=== PATIENT | male | born 1975 | race Caucasian/White ===

== ENCOUNTER 2018-06-21 17:01 | Emergency (ER) | payer MEDICARE ==
[~2018-06-21] VITALS: Ht 188 cm; Wt 127.0 kg
[2018-06-21] MEDS ORDERED: ATOR20 PO (18:31)
[2018-06-21] MEDS ORDERED: GABA300 PO (18:31)
[2018-06-21 19:26] LABS: BASOPHILS ABSOLUTE AUTO 0.05 K/mm3 (0.00-0.23); BASOPHILS PERCENT AUTO 1 % (0-2); EOSINOPHILS ABSOLUTE AUTO 0.15 K/mm3 (0.00-0.68); EOSINOPHILS PERCENT AUTO 2 % (0-6); Hematocrit 45.2 % (37.0-53.0); Hemoglobin 15.5 g/dL (13.5-17.5); IMMATURE GRAN ABSOLUTE AUTO 0.01 K/mm3 (0.00-0.10); IMMATURE GRAN PERCENT AUTO 0 % (0-1); LYMPHOCYTES ABSOLUTE AUTO 2.15 K/mm3 (0.84-5.20); LYMPHOCYTES PERCENT AUTO 33 % (21-46); MONOCYTES ABSOLUTE AUTO 0.56 K/mm3 (0.16-1.47); MONOCYTES PERCENT AUTO 9 % (4-13); Mean Corpuscular HGB 32.9 pg (26.0-34.0); Mean Corpuscular HGB Conc 34.3 g/dL (31.5-36.5); Mean Corpuscular Volume 96 fL (80-100); Mean Platelet Volume 10.6 fL (9.1-12.4); NEUTROPHILS ABSOLUTE AUTO 3.57 K/mm3 (1.96-9.15); NEUTROPHILS PERCENT AUTO 55 % (41-73); Platelet Count 202 K/mm3 (150-400); RDW Standard Deviation 41.4 fL (35.1-46.3); Red Blood Cell Count 4.71 M/mm3 (4.30-5.90); White Blood Cell Count 6.49 K/mm3 (4.00-11.30)
[2018-06-21 19:42] LABS: International Normalized Ratio 0.97
[2018-06-21 19:45] LABS: Alanine Aminotransfer (ALT/SGP 106 U/L (12-78); Albumin, Blood 3.9 g/dL (3.4-5.0); Albumin/Globulin Ratio 1.3 (0.8-1.8); Alk Phos 92 U/L (50-136); Anion Gap 6 mmol/L (6-16); Aspartate Aminotrans (AST/SGOT 54 U/L (12-37); Bilirubin, Total 0.4 mg/dL (0.1-1.0); Blood Urea Nitrogen 13 mg/dL (8-24); Bun/Creatinine Ratio 13.2 (12.0-20.0); CO2, Blood 30 mmol/L (21-32); Calcium, Blood 9.1 mg/dL (8.5-10.1); Chloride, Blood 103 mmol/L (98-108); Creatinine, Blood 0.99 mg/dL (0.60-1.20); Glomerular Filtration Rate >60 (60-); Glucose, Blood 122 mg/dL (70-99); Potassium, Blood 3.8 mmol/L (3.5-5.5); Sodium, Blood 139 mmol/L (136-145); Total Protein, Blood 6.9 g/dL (6.4-8.2)
[2018-06-21] MEDS ORDERED: CEPH500 PO (20:13)
== END 2018-06-21 20:27 | disposition home or self-care (01) ==
LOC: ER 17:01
PROVIDERS: Emergency Medicine
DX: L03.115 Cellulitis of right lower limb (principal); F17.200 Nicotine dependence, unspecified, uncomplicated; Z88.8 Allergy status to other drugs, medicaments and biological substances; Z88.5 Allergy status to narcotic agent; Z88.6 Allergy status to analgesic agent; Z79.899 Other long term (current) drug therapy
CPT/HCPCS: 80053; 85025; 85610; 85730; 93971; 99284-25

== ENCOUNTER → 2018-09-21 | Outpatient (CLI) | payer OTHER ==
[~2018-09-21] MED LIST: ATOR20 PO; Bactrim Ds Tab1 EACH PO; CEPH500 PO; GABA300 PO
[2018-09-21 15:06] LABS: BASOPHILS ABSOLUTE AUTO 0.06 K/mm3 (0.00-0.23); BASOPHILS PERCENT AUTO 1 % (0-2); EOSINOPHILS ABSOLUTE AUTO 0.16 K/mm3 (0.00-0.68); EOSINOPHILS PERCENT AUTO 2 % (0-6); Hematocrit 46.9 % (37.0-53.0); Hemoglobin 16.5 g/dL (13.5-17.5); IMMATURE GRAN ABSOLUTE AUTO 0.02 K/mm3 (0.00-0.10); IMMATURE GRAN PERCENT AUTO 0 % (0-1); LYMPHOCYTES ABSOLUTE AUTO 2.08 K/mm3 (0.84-5.20); LYMPHOCYTES PERCENT AUTO 26 % (21-46); MONOCYTES ABSOLUTE AUTO 0.45 K/mm3 (0.16-1.47); MONOCYTES PERCENT AUTO 6 % (4-13); Mean Corpuscular HGB 33.2 pg (26.0-34.0); Mean Corpuscular HGB Conc 35.2 g/dL (31.5-36.5); Mean Corpuscular Volume 94 fL (80-100); Mean Platelet Volume 10.2 fL (9.1-12.4); NEUTROPHILS PERCENT AUTO 65 % (41-73); Platelet Count 222 K/mm3 (150-400); RDW Standard Deviation 41.3 fL (35.1-46.3); Red Blood Cell Count 4.97 M/mm3 (4.30-5.90); White Blood Cell Count 7.87 K/mm3 (4.00-11.30)
[2018-09-21 15:20] LABS: Alanine Aminotransfer (ALT/SGP 51 U/L (12-78); Albumin, Blood 3.8 g/dL (3.4-5.0); Albumin/Globulin Ratio 1.1 (0.8-1.8); Alk Phos 86 U/L (40-126); Anion Gap 10 mmol/L (6-16); Aspartate Aminotrans (AST/SGOT 18 U/L (12-37); Bilirubin, Total 0.4 mg/dL (0.1-1.0); Blood Urea Nitrogen 11 mg/dL (8-24); Bun/Creatinine Ratio 11.8 (12.0-20.0); CO2, Blood 28 mmol/L (21-32); CPK Creatine Kinase 223 U/L (39-308); Calcium, Blood 9.2 mg/dL (8.5-10.1); Chloride, Blood 103 mmol/L (98-108); Creatinine, Blood 0.93 mg/dL (0.60-1.20); Globulin, Blood 3.5 g/dL (2.2-4.0); Glomerular Filtration Rate >60 (60-); Glucose, Blood 110 mg/dL (70-99); Potassium, Blood 4.3 mmol/L (3.5-5.5); Sodium, Blood 141 mmol/L (136-145); Total Protein, Blood 7.3 g/dL (6.4-8.2)
[2018-09-21 15:21] LABS: Troponin I <0.017 ng/mL (0.000-0.040)
== END ==
LOC: LAB SHORT 15:02 → LAB EV 15:02
PROVIDERS: General Practice
DX: R07.9 Chest pain, unspecified (principal)
CPT/HCPCS: 80053; 82550; 84484; 85025; 85379

== ENCOUNTER 2018-12-06 02:36 | Emergency (ER) | payer MEDICARE, OTHER ==
[~2018-12-06] VITALS: Ht 188 cm; Wt 136.1 kg
[2018-12-06] MEDS ORDERED: LISINOPRIL (03:25)
== END 2018-12-06 06:20 | disposition home or self-care (01) ==
LOC: ER 02:36
DX: N48.30 Priapism, unspecified (principal); Z88.1 Allergy status to other antibiotic agents; Z88.5 Allergy status to narcotic agent; Z88.6 Allergy status to analgesic agent; Z88.8 Allergy status to other drugs, medicaments and biological substances; Z79.899 Other long term (current) drug therapy; F17.200 Nicotine dependence, unspecified, uncomplicated
CPT/HCPCS: 36415; 96374; 99283-25; J1170; J2370; J2405; J3105

== ENCOUNTER 2018-12-06 10:37 | Emergency (ER) | payer MEDICARE, OTHER ==
[~2018-12-06] VITALS: Ht 188 cm; Wt 136.1 kg
[~2018-12-06 10:37] MED LIST changes: +LISINOPRIL
== END 2018-12-06 13:16 | disposition home or self-care (01) ==
LOC: ER 10:37
DX: N48.30 Priapism, unspecified (principal); Z86.73 Personal history of transient ischemic attack (TIA), and cerebral infarction without residual deficits; F17.200 Nicotine dependence, unspecified, uncomplicated
CPT/HCPCS: 99283; J2370

== ENCOUNTER 2019-05-28 19:50 | Emergency (ER) | payer OTHER, MEDICARE ==
[~2019-05-28] VITALS: Ht 188 cm; Wt 145.2 kg
== END 2019-05-28 20:40 | disposition home or self-care (01) ==
LOC: ER 19:50
DX: M25.532 Pain in left wrist (principal); I25.2 Old myocardial infarction; F17.200 Nicotine dependence, unspecified, uncomplicated; Z86.73 Personal history of transient ischemic attack (TIA), and cerebral infarction without residual deficits; Z85.51 Personal history of malignant neoplasm of bladder; Z88.1 Allergy status to other antibiotic agents; Z88.8 Allergy status to other drugs, medicaments and biological substances; Z88.5 Allergy status to narcotic agent; Z79.899 Other long term (current) drug therapy
CPT/HCPCS: 29125; 73110; 99283-25

== ENCOUNTER 2021-01-09 11:07 | Emergency (ER) | payer OTHER ==
[~2021-01-09] VITALS: Ht 188 cm; Wt 140.2 kg
[2021-01-09 11:41] LABS: BASOPHILS ABSOLUTE AUTO 0.06 K/mm3 (0.00-0.23); BASOPHILS PERCENT AUTO 1 % (0-2); EOSINOPHILS ABSOLUTE AUTO 0.09 K/mm3 (0.00-0.68); EOSINOPHILS PERCENT AUTO 1 % (0-6); Hematocrit 48.7 % (37.0-53.0); Hemoglobin 17.2 g/dL (13.5-17.5); IMMATURE GRAN ABSOLUTE AUTO 0.01 K/mm3 (0.00-0.10); IMMATURE GRAN PERCENT AUTO 0 % (0-1); LYMPHOCYTES ABSOLUTE AUTO 1.79 K/mm3 (0.84-5.20); LYMPHOCYTES PERCENT AUTO 24 % (21-46); MONOCYTES ABSOLUTE AUTO 0.46 K/mm3 (0.16-1.47); MONOCYTES PERCENT AUTO 6 % (4-13); Mean Corpuscular HGB 33.5 pg (26.0-34.0); Mean Corpuscular HGB Conc 35.3 g/dL (31.5-36.5); Mean Corpuscular Volume 95 fL (80-100); Mean Platelet Volume 10.3 fL (9.1-12.4); NEUTROPHILS PERCENT AUTO 68 % (41-73); Platelet Count 242 K/mm3 (150-400); RDW Coefficient Variation 11.8 % (11.7-14.2); RDW Standard Deviation 41.2 fL (35.1-46.3); Red Blood Cell Count 5.14 M/mm3 (4.30-5.90); White Blood Cell Count 7.51 K/mm3 (4.00-11.30)
[2021-01-09 11:59] LABS: Alanine Aminotransfer (ALT/SGP 68 U/L (12-78); Albumin, Blood 3.9 g/dL (3.4-5.0); Alk Phos 106 U/L (50-136); Anion Gap 4 mmol/L (6-16); Aspartate Aminotrans (AST/SGOT 30 U/L (12-37); Bilirubin, Total 0.4 mg/dL (0.1-1.0); Blood Urea Nitrogen 17 mg/dL (8-24); CO2, Blood 30 mmol/L (21-32); Calcium, Blood 9.5 mg/dL (8.5-10.1); Chloride, Blood 101 mmol/L (98-108); Creatinine, Blood 0.85 mg/dL (0.60-1.20); Globulin, Blood 3.8 g/dL (2.2-4.0); Glomerular Filtration Rate >60 (60-); Glucose, Blood 271 mg/dL (70-99); Potassium, Blood 4.1 mmol/L (3.5-5.5); Sodium, Blood 135 mmol/L (136-145); Total Protein, Blood 7.7 g/dL (6.4-8.2); Troponin I <0.015 ng/mL (0.000-0.040)
== END 2021-01-09 14:56 | disposition home or self-care (01) ==
LOC: ER 11:07
PROVIDERS: Emergency Medicine
DX: R07.9 Chest pain, unspecified (principal); E11.65 Type 2 diabetes mellitus with hyperglycemia; I25.2 Old myocardial infarction; F17.200 Nicotine dependence, unspecified, uncomplicated; Z88.5 Allergy status to narcotic agent; Z88.4 Allergy status to anesthetic agent; Z88.8 Allergy status to other drugs, medicaments and biological substances; Z79.899 Other long term (current) drug therapy; Z86.73 Personal history of transient ischemic attack (TIA), and cerebral infarction without residual deficits
CPT/HCPCS: 36415; 71045; 80053; 83690; 84484; 85025; 93005; 93010; 99284-25

== ENCOUNTER → 2021-02-03 | Outpatient (CLI) | payer OTHER | END | disposition home or self-care (01) | LOC: LAB SHORT 12:12 | DX: L72.3 Sebaceous cyst (principal) | CPT/HCPCS: 87070; 87075; 87205 ==

== ENCOUNTER 2021-05-10 11:44 | Emergency (ER) | payer OTHER ==
[~2021-05-10] VITALS: Ht 188 cm; Wt 131.5 kg
== END 2021-05-10 13:16 | disposition home or self-care (01) ==
LOC: ER 11:44
DX: S61.012A Laceration without foreign body of left thumb without damage to nail, initial encounter (principal); G62.9 Polyneuropathy, unspecified; I25.2 Old myocardial infarction; G47.30 Sleep apnea, unspecified; Z86.73 Personal history of transient ischemic attack (TIA), and cerebral infarction without residual deficits; F17.210 Nicotine dependence, cigarettes, uncomplicated; Z23 Encounter for immunization; Z88.1 Allergy status to other antibiotic agents; Z88.8 Allergy status to other drugs, medicaments and biological substances; Z88.5 Allergy status to narcotic agent; Z79.899 Other long term (current) drug therapy; W26.8XXA Contact with other sharp object(s), not elsewhere classified, initial encounter
CPT/HCPCS: 12002; 90471; 90714; 99282

== ENCOUNTER → 2021-07-18 | Outpatient (CLI) | payer OTHER | END | disposition home or self-care (01) | LOC: LAB 12:31 → LAB SHORT 12:31 | DX: L60.2 Onychogryphosis (principal); B35.1 Tinea unguium | CPT/HCPCS: 88305; 88312 ==

== ENCOUNTER → 2021-12-19 | Outpatient (CLI) | payer OTHER ==
[2021-12-19 12:41] LABS: BASOPHILS ABSOLUTE AUTO 0.05 K/mm3 (0.00-0.23); BASOPHILS PERCENT AUTO 1 % (0-2); EOSINOPHILS ABSOLUTE AUTO 0.13 K/mm3 (0.00-0.68); EOSINOPHILS PERCENT AUTO 2 % (0-6); Hematocrit 46.2 % (37.0-53.0); Hemoglobin 16.7 g/dL (13.5-17.5); IMMATURE GRAN ABSOLUTE AUTO 0.03 K/mm3 (0.00-0.10); IMMATURE GRAN PERCENT AUTO 0 % (0-1); LYMPHOCYTES ABSOLUTE AUTO 1.46 K/mm3 (0.84-5.20); LYMPHOCYTES PERCENT AUTO 20 % (21-46); MONOCYTES ABSOLUTE AUTO 0.47 K/mm3 (0.16-1.47); MONOCYTES PERCENT AUTO 6 % (4-13); Mean Corpuscular HGB 33.4 pg (26.0-34.0); Mean Corpuscular HGB Conc 36.1 g/dL (31.5-36.5); Mean Corpuscular Volume 92 fL (80-100); Mean Platelet Volume 9.7 fL (9.1-12.4); NEUTROPHILS ABSOLUTE AUTO 5.36 K/mm3 (1.96-9.15); NEUTROPHILS PERCENT AUTO 71 % (41-73); Platelet Count 240 K/mm3 (150-400); RDW Coefficient Variation 11.8 % (11.7-14.2); RDW Standard Deviation 39.9 fL (35.1-46.3)
[2021-12-19 12:51] LABS: Anion Gap 10 mmol/L (6-16); Blood Urea Nitrogen 14 mg/dL (8-24); Bun/Creatinine Ratio 13.2 (12.0-20.0); CO2, Blood 30 mmol/L (21-32); Calcium, Blood 9.5 mg/dL (8.5-10.1); Chloride, Blood 100 mmol/L (98-108); Creatinine, Blood 1.06 mg/dL (0.60-1.20); Glomerular Filtration Rate >60 (60-); Glucose, Blood 290 mg/dL (70-99); Potassium, Blood 4.4 mmol/L (3.5-5.5); Sodium, Blood 140 mmol/L (136-145)
== END | disposition home or self-care (01) ==
LOC: LAB 12:38 → LAB SHORT 12:38
PROVIDERS: Physician Assistant Medical
DX: R07.9 Chest pain, unspecified (principal)
CPT/HCPCS: 80048; 84484; 85025

== ENCOUNTER 2022-02-16 12:04 | Emergency (ER) | payer OTHER ==
[~2022-02-16] VITALS: Ht 188 cm; Wt 131.5 kg
[2022-02-16 12:41] LABS: BASOPHILS ABSOLUTE AUTO 0.05 K/mm3 (0.00-0.23); BASOPHILS PERCENT AUTO 1 % (0-2); EOSINOPHILS ABSOLUTE AUTO 0.12 K/mm3 (0.00-0.68); EOSINOPHILS PERCENT AUTO 1 % (0-6); Hematocrit 46.1 % (37.0-53.0); Hemoglobin 16.3 g/dL (13.5-17.5); IMMATURE GRAN ABSOLUTE AUTO 0.02 K/mm3 (0.00-0.10); IMMATURE GRAN PERCENT AUTO 0 % (0-1); LYMPHOCYTES ABSOLUTE AUTO 1.93 K/mm3 (0.84-5.20); LYMPHOCYTES PERCENT AUTO 23 % (21-46); MONOCYTES ABSOLUTE AUTO 0.48 K/mm3 (0.16-1.47); MONOCYTES PERCENT AUTO 6 % (4-13); Mean Corpuscular HGB Conc 35.4 g/dL (31.5-36.5); Mean Corpuscular Volume 93 fL (80-100); Mean Platelet Volume 9.7 fL (9.1-12.4); NEUTROPHILS PERCENT AUTO 69 % (41-73); Platelet Count 309 K/mm3 (150-400); RDW Coefficient Variation 12.2 % (11.7-14.2); RDW Standard Deviation 41.8 fL (35.1-46.3); Red Blood Cell Count 4.94 M/mm3 (4.30-5.90)
[2022-02-16 13:03] LABS: Albumin, Blood 4.1 g/dL (3.4-5.0); Albumin/Globulin Ratio 1.1 (0.8-1.8); Bilirubin, Total 0.4 mg/dL (0.1-1.0); Bun/Creatinine Ratio 16.5 (12.0-20.0); Calcium, Blood 10.1 mg/dL (8.5-10.1); Creatinine, Blood 0.91 mg/dL (0.60-1.20); Globulin, Blood 3.7 g/dL (2.2-4.0); Potassium, Blood 4.2 mmol/L (3.5-5.5); Total Protein, Blood 7.8 g/dL (6.4-8.2)
[2022-02-16] MEDS ORDERED: Budeprion Xl300 MG PO (13:29)
[2022-02-16] MEDS ORDERED: FARXIGA10 MG PO (13:29)
[2022-02-16] MEDS ORDERED: LISI20 PO (13:29)
[2022-02-16 13:57] LABS: Source, Urine Urostomy Bag
[2022-02-16 14:16] LABS: Appearance, Urine Hazy (Clear); Bilirubin, Urine Neg (Neg); Blood, Urine 2+ (Neg); Glucose Qualitative, Urine 4+ (Neg); Ketones, Urine Neg (Neg); Leukocyte Esterase, Urine 3+ (Neg); Nitrite, Urine Pos (Neg); Protein, Urine 1+ (Neg); Specific Gravity, Urine 1.015 (1.003-1.022); Urobilinogen, Urine NORM (Normal)
[2022-02-16 14:40] LABS: Color, Urine Pale Yellow (P-Yellow); White Blood Cells, Urine 50-100 /hpf (0-5)
[2022-02-16 14:41] LABS: Squamous Epithelial Cells Not Seen /hpf (Few)
[2022-02-16 14:43] LABS: Bacteria Many /hpf; Mucus Light (0-Heavy); Transitional Epithelial Cells Few /hpf (0-Rare)
[2022-02-16] MEDS ORDERED: CEFD300 PO (18:25)
== END 2022-02-16 18:43 | disposition home or self-care (01) ==
LOC: ER 12:04
PROVIDERS: Physician Assistant
DX: N39.0 Urinary tract infection, site not specified (principal); I25.2 Old myocardial infarction; Z79.899 Other long term (current) drug therapy; Z88.6 Allergy status to analgesic agent; Z88.1 Allergy status to other antibiotic agents; Z88.5 Allergy status to narcotic agent; Z88.8 Allergy status to other drugs, medicaments and biological substances
CPT/HCPCS: 36415; 74177; 80053; 81001; 85025; 87077; 87086; 87186; 93005; 93010; 96374-59; 96375; 99284-25; J0696; J1885; Q9967

== ENCOUNTER 2022-02-21 22:12 | Inpatient (IN) | payer OTHER ==
[~2022-02-21] VITALS: Ht 188 cm; Wt 134.6 kg
[~2022-02-21 22:12] MED LIST changes: +Budeprion Xl300 MG PO; +CEFD300 PO; +FARXIGA10 MG PO; +LISI20 PO
[2022-02-21 22:49] LABS: BASOPHILS ABSOLUTE AUTO 0.04 K/mm3 (0.00-0.23); BASOPHILS PERCENT AUTO 0 % (0-2); EOSINOPHILS ABSOLUTE AUTO 0.14 K/mm3 (0.00-0.68); EOSINOPHILS PERCENT AUTO 1 % (0-6); Hematocrit 44.7 % (37.0-53.0); Hemoglobin 15.8 g/dL (13.5-17.5); IMMATURE GRAN ABSOLUTE AUTO 0.03 K/mm3 (0.00-0.10); IMMATURE GRAN PERCENT AUTO 0 % (0-1); LYMPHOCYTES ABSOLUTE AUTO 2.04 K/mm3 (0.84-5.20); LYMPHOCYTES PERCENT AUTO 20 % (21-46); MONOCYTES ABSOLUTE AUTO 0.63 K/mm3 (0.16-1.47); MONOCYTES PERCENT AUTO 6 % (4-13); Mean Corpuscular HGB 32.9 pg (26.0-34.0); Mean Corpuscular HGB Conc 35.3 g/dL (31.5-36.5); Mean Corpuscular Volume 93 fL (80-100); Mean Platelet Volume 9.7 fL (9.1-12.4); NEUTROPHILS ABSOLUTE AUTO 7.24 K/mm3 (1.96-9.15); NEUTROPHILS PERCENT AUTO 72 % (41-73); Platelet Count 281 K/mm3 (150-400); RDW Coefficient Variation 12.3 % (11.7-14.2); RDW Standard Deviation 42.5 fL (35.1-46.3); White Blood Cell Count 10.12 K/mm3 (4.00-11.30)
[2022-02-21 23:06] LABS: Albumin, Blood 4.1 g/dL (3.4-5.0); Albumin/Globulin Ratio 1.1 (0.8-1.8); Bilirubin, Total 0.6 mg/dL (0.1-1.0); Bun/Creatinine Ratio 20.6 (12.0-20.0); Calcium, Blood 9.7 mg/dL (8.5-10.1); Creatinine, Blood 1.07 mg/dL (0.60-1.20); Globulin, Blood 3.7 g/dL (2.2-4.0); Magnesium, Blood 2.1 mg/dL (1.6-2.4); Potassium, Blood 4.2 mmol/L (3.5-5.5); Total Protein, Blood 7.8 g/dL (6.4-8.2)
[2022-02-22 04:59] LABS: BASOPHILS ABSOLUTE AUTO 0.04 K/mm3 (0.00-0.23); BASOPHILS PERCENT AUTO 1 % (0-2); EOSINOPHILS ABSOLUTE AUTO 0.05 K/mm3 (0.00-0.68); EOSINOPHILS PERCENT AUTO 1 % (0-6); Hematocrit 43.7 % (37.0-53.0); Hemoglobin 15.2 g/dL (13.5-17.5); IMMATURE GRAN ABSOLUTE AUTO 0.02 K/mm3 (0.00-0.10); IMMATURE GRAN PERCENT AUTO 0 % (0-1); LYMPHOCYTES PERCENT AUTO 17 % (21-46); MONOCYTES ABSOLUTE AUTO 0.33 K/mm3 (0.16-1.47); MONOCYTES PERCENT AUTO 4 % (4-13); Mean Corpuscular HGB 32.8 pg (26.0-34.0); Mean Corpuscular HGB Conc 34.8 g/dL (31.5-36.5); Mean Corpuscular Volume 94 fL (80-100); Mean Platelet Volume 9.9 fL (9.1-12.4); NEUTROPHILS PERCENT AUTO 78 % (41-73); Platelet Count 240 K/mm3 (150-400); RDW Coefficient Variation 12.3 % (11.7-14.2); RDW Standard Deviation 42.2 fL (35.1-46.3); Red Blood Cell Count 4.64 M/mm3 (4.30-5.90); White Blood Cell Count 8.64 K/mm3 (4.00-11.30)
[2022-02-22 05:23] LABS: Albumin, Blood 3.7 g/dL (3.4-5.0); Albumin/Globulin Ratio 1.1 (0.8-1.8); Bilirubin, Total 0.6 mg/dL (0.1-1.0); Bun/Creatinine Ratio 20.5 (12.0-20.0); Calcium, Blood 9.6 mg/dL (8.5-10.1); Creatinine, Blood 1.12 mg/dL (0.60-1.20); Globulin, Blood 3.4 g/dL (2.2-4.0); Potassium, Blood 4.5 mmol/L (3.5-5.5); Total Protein, Blood 7.1 g/dL (6.4-8.2)
--- NOTE | 2022-02-22 06:01 | NUR ---
SHIFT [facility] ASSUMED CARE OF PT AROUND 0200. PT IS A/OX4. HEART SOUNDS REGULAR. LUNG SOUNDS CLEAR. PT HAS SOME PAIN IN HIS ABD BUT STATES THAT IT IS TOLERABLE. PT SLEPT AFTER ADMISSION WAS DONE. PT HAS BEEN NPO SINCE ARRIVAL TO UNIT.
[2022-02-22] MEDS ORDERED: METO10SY PO (11:04)
== END 2022-02-22 12:04 | disposition home or self-care (01) | DRG 392 ==
LOC: ER 22:12 → PCU 02-22 01:09 → ER 02-22 02:20 → PCU 02-22 04:05
PROVIDERS: Student in an Organized Health Care Education/Training Program; ADMIT Internal Medicine
DX: R10.9 Unspecified abdominal pain (principal); R11.2 Nausea with vomiting, unspecified; E78.5 Hyperlipidemia, unspecified; I10 Essential (primary) hypertension; E11.40 Type 2 diabetes mellitus with diabetic neuropathy, unspecified; G47.30 Sleep apnea, unspecified; N52.9 Male erectile dysfunction, unspecified; I25.10 Atherosclerotic heart disease of native coronary artery without angina pectoris; Z85.51 Personal history of malignant neoplasm of bladder; Z90.6 Acquired absence of other parts of urinary tract; I25.2 Old myocardial infarction; Z86.73 Personal history of transient ischemic attack (TIA), and cerebral infarction without residual deficits; Z90.79 Acquired absence of other genital organ(s); Z87.891 Personal history of nicotine dependence; Z87.19 Personal history of other diseases of the digestive system; Z90.49 Acquired absence of other specified parts of digestive tract; Z88.5 Allergy status to narcotic agent; Z88.1 Allergy status to other antibiotic agents; Z88.8 Allergy status to other drugs, medicaments and biological substances; Z79.02 Long term (current) use of antithrombotics/antiplatelets; Z79.811 Long term (current) use of aromatase inhibitors; Z79.899 Other long term (current) drug therapy; Z79.84 Long term (current) use of oral hypoglycemic drugs; Z98.890 Other specified postprocedural states; Z93.6 Other artificial openings of urinary tract status
CPT/HCPCS: 36415; 71045; 74177; 80053; 82947; 83690; 83735; 84484; 85025; 93005; 93010; 96374-59; 96375; 99285-25; A9270; J1170; J1790; J1815; J1885; J7030; Q9967

== ENCOUNTER → 2022-03-01 | Outpatient (CLI) | payer OTHER ==
[~2022-03-01] MED LIST changes: +METO10SY PO
[2022-03-01 09:51] LABS: Protein, Urine Quantitative 18.4 mg/dL (0.0-11.9)
[2022-03-01 09:54] LABS: Microalbumin, Urine Quant. 56.6 mg/L (0.000-20.000)
== END | disposition home or self-care (01) ==
LOC: LAB 08:23 → LAB SHORT 08:23
PROVIDERS: Internal Medicine Nephrology
DX: N18.2 Chronic kidney disease, stage 2 (mild) (principal); D63.1 Anemia in chronic kidney disease; N25.81 Secondary hyperparathyroidism of renal origin; E55.9 Vitamin D deficiency, unspecified; E78.00 Pure hypercholesterolemia, unspecified; R76.9 Abnormal immunological finding in serum, unspecified; R94.5 Abnormal results of liver function studies; R94.6 Abnormal results of thyroid function studies
CPT/HCPCS: 81050; 82043; 82570; 84156

== ENCOUNTER 2022-06-07 13:17 | Emergency (ER) | payer OTHER ==
[~2022-06-07] VITALS: Ht 188 cm; Wt 133.8 kg
[2022-06-07 13:48] LABS: BASOPHILS ABSOLUTE AUTO 0.05 K/mm3 (0.00-0.23); BASOPHILS PERCENT AUTO 1 % (0-2); EOSINOPHILS PERCENT AUTO 1 % (0-6); Hematocrit 46.1 % (37.0-53.0); Hemoglobin 16.5 g/dL (13.5-17.5); IMMATURE GRAN ABSOLUTE AUTO 0.02 K/mm3 (0.00-0.10); IMMATURE GRAN PERCENT AUTO 0 % (0-1); LYMPHOCYTES ABSOLUTE AUTO 2.06 K/mm3 (0.84-5.20); LYMPHOCYTES PERCENT AUTO 25 % (21-46); MONOCYTES ABSOLUTE AUTO 0.55 K/mm3 (0.16-1.47); MONOCYTES PERCENT AUTO 7 % (4-13); Mean Corpuscular HGB 32.1 pg (26.0-34.0); Mean Corpuscular HGB Conc 35.8 g/dL (31.5-36.5); Mean Corpuscular Volume 90 fL (80-100); Mean Platelet Volume 10.1 fL (9.1-12.4); NEUTROPHILS ABSOLUTE AUTO 5.48 K/mm3 (1.96-9.15); NEUTROPHILS PERCENT AUTO 66 % (41-73); Platelet Count 266 K/mm3 (150-400); RDW Coefficient Variation 12.1 % (11.7-14.2); RDW Standard Deviation 39.8 fL (35.1-46.3); Red Blood Cell Count 5.14 M/mm3 (4.30-5.90); White Blood Cell Count 8.26 K/mm3 (4.00-11.30)
[2022-06-07 14:06] LABS: Bilirubin, Total 0.5 mg/dL (0.1-1.0); Bun/Creatinine Ratio 22.4 (12.0-20.0); Calcium, Blood 9.6 mg/dL (8.5-10.1); Creatinine, Blood 0.89 mg/dL (0.60-1.20); Globulin, Blood 3.9 g/dL (2.2-4.0); Potassium, Blood 4.2 mmol/L (3.5-5.5); Total Protein, Blood 7.9 g/dL (6.4-8.2)
== END 2022-06-07 16:09 | disposition left against medical advice (07) ==
LOC: ER 13:17
PROVIDERS: Physician Assistant
DX: R53.83 Other fatigue (principal); R41.0 Disorientation, unspecified; Z53.21 Procedure and treatment not carried out due to patient leaving prior to being seen by health care provider
CPT/HCPCS: 36415; 80053; 85025; 93005; 93010; 99282-25

== ENCOUNTER 2022-08-01 13:26 | Emergency (ER) | payer OTHER ==
[~2022-08-01] VITALS: Ht 188 cm; Wt 127.0 kg
[2022-08-01] MEDS ORDERED: ERGO400 PO (13:54)
[2022-08-01] MEDS ORDERED: TOCO1000 PO (13:54)
[2022-08-01 14:49] LABS: BASOPHILS ABSOLUTE AUTO 0.02 K/mm3 (0.00-0.23); BASOPHILS PERCENT AUTO 0 % (0-2); EOSINOPHILS ABSOLUTE AUTO 0.06 K/mm3 (0.00-0.68); EOSINOPHILS PERCENT AUTO 1 % (0-6); Hematocrit 41.1 % (37.0-53.0); Hemoglobin 14.6 g/dL (13.5-17.5); IMMATURE GRAN ABSOLUTE AUTO 0.01 K/mm3 (0.00-0.10); IMMATURE GRAN PERCENT AUTO 0 % (0-1); LYMPHOCYTES ABSOLUTE AUTO 1.56 K/mm3 (0.84-5.20); LYMPHOCYTES PERCENT AUTO 26 % (21-46); MONOCYTES ABSOLUTE AUTO 0.62 K/mm3 (0.16-1.47); MONOCYTES PERCENT AUTO 10 % (4-13); Mean Corpuscular HGB 31.9 pg (26.0-34.0); Mean Corpuscular HGB Conc 35.5 g/dL (31.5-36.5); Mean Corpuscular Volume 90 fL (80-100); Mean Platelet Volume 10.7 fL (9.1-12.4); NEUTROPHILS ABSOLUTE AUTO 3.69 K/mm3 (1.96-9.15); NEUTROPHILS PERCENT AUTO 62 % (41-73); Platelet Count 169 K/mm3 (150-400); RDW Coefficient Variation 11.8 % (11.7-14.2); RDW Standard Deviation 38.4 fL (35.1-46.3); Red Blood Cell Count 4.57 M/mm3 (4.30-5.90); White Blood Cell Count 5.96 K/mm3 (4.00-11.30)
[2022-08-01 15:02] LABS: Albumin, Blood 3.2 g/dL (3.4-5.0); Albumin/Globulin Ratio 0.9 (0.8-1.8); Bilirubin, Total 0.6 mg/dL (0.1-1.0); Bun/Creatinine Ratio 11.1 (12.0-20.0); Creatinine, Blood 1.44 mg/dL (0.60-1.20); Globulin, Blood 3.6 g/dL (2.2-4.0); Magnesium, Blood 1.9 mg/dL (1.6-2.4); Potassium, Blood 3.7 mmol/L (3.5-5.5); Total Protein, Blood 6.8 g/dL (6.4-8.2)
[2022-08-01 16:04] LABS: Influenza B, PCR NEGATIVE (NEGATIVE); Resp Syncytial Virus, PCR NEGATIVE (NEGATIVE); SARS-Cov-2 (COVID-19) PCR, MMC NEGATIVE (NEGATIVE)
[2022-08-01 16:12] LABS: Influenza A, PCR POSITIVE (NEGATIVE)
== END 2022-08-01 16:46 | disposition home or self-care (01) ==
LOC: ER 13:26
PROVIDERS: Student in an Organized Health Care Education/Training Program
DX: J10.1 Influenza due to other identified influenza virus with other respiratory manifestations (principal); I25.10 Atherosclerotic heart disease of native coronary artery without angina pectoris; Z20.822 Contact with and (suspected) exposure to COVID-19; Z88.1 Allergy status to other antibiotic agents; Z88.5 Allergy status to narcotic agent; Z88.8 Allergy status to other drugs, medicaments and biological substances; Z88.6 Allergy status to analgesic agent; Z79.899 Other long term (current) drug therapy
CPT/HCPCS: 0241U; 80053; 83735; 85025; 93005; 93010; A9270; J1885; J7030

== ENCOUNTER 2022-08-21 15:52 | Emergency (ER) | payer OTHER ==
[~2022-08-21] VITALS: Ht 188 cm; Wt 129.3 kg
[~2022-08-21 15:52] MED LIST changes: +ERGO400 PO; +TOCO1000 PO
[2022-08-21 17:25] LABS: BASOPHILS ABSOLUTE AUTO 0.03 K/mm3 (0.00-0.23); BASOPHILS PERCENT AUTO 0 % (0-2); EOSINOPHILS ABSOLUTE AUTO 0.07 K/mm3 (0.00-0.68); EOSINOPHILS PERCENT AUTO 1 % (0-6); Hematocrit 44.9 % (37.0-53.0); IMMATURE GRAN ABSOLUTE AUTO 0.01 K/mm3 (0.00-0.10); IMMATURE GRAN PERCENT AUTO 0 % (0-1); LYMPHOCYTES ABSOLUTE AUTO 2.33 K/mm3 (0.84-5.20); LYMPHOCYTES PERCENT AUTO 27 % (21-46); MONOCYTES ABSOLUTE AUTO 0.49 K/mm3 (0.16-1.47); MONOCYTES PERCENT AUTO 6 % (4-13); Mean Corpuscular HGB 31.8 pg (26.0-34.0); Mean Corpuscular HGB Conc 35.6 g/dL (31.5-36.5); Mean Corpuscular Volume 89 fL (80-100); Mean Platelet Volume 9.5 fL (9.1-12.4); NEUTROPHILS ABSOLUTE AUTO 5.56 K/mm3 (1.96-9.15); NEUTROPHILS PERCENT AUTO 66 % (41-73); Platelet Count 320 K/mm3 (150-400); RDW Coefficient Variation 11.9 % (11.7-14.2); RDW Standard Deviation 37.8 fL (35.1-46.3); Red Blood Cell Count 5.03 M/mm3 (4.30-5.90); White Blood Cell Count 8.49 K/mm3 (4.00-11.30)
[2022-08-21 17:50] LABS: Albumin/Globulin Ratio 1.1 (0.8-1.8); Bilirubin, Total 0.6 mg/dL (0.1-1.0); Bun/Creatinine Ratio 21.4 (12.0-20.0); Calcium, Blood 9.6 mg/dL (8.5-10.1); Creatinine, Blood 0.89 mg/dL (0.60-1.20); Globulin, Blood 3.8 g/dL (2.2-4.0); Potassium, Blood 4.1 mmol/L (3.5-5.5); Total Protein, Blood 7.8 g/dL (6.4-8.2)
== END 2022-08-21 20:41 | disposition home or self-care (01) ==
LOC: ER 15:52
PROVIDERS: Physician Assistant
DX: R10.32 Left lower quadrant pain (principal); F17.210 Nicotine dependence, cigarettes, uncomplicated; Z88.5 Allergy status to narcotic agent; Z88.6 Allergy status to analgesic agent; Z88.8 Allergy status to other drugs, medicaments and biological substances; Z79.899 Other long term (current) drug therapy
CPT/HCPCS: 36415; 74177; 80053; 85025; Q9967

== ENCOUNTER 2022-10-24 11:17 | Day surgery (SDC) | payer OTHER ==
[~2022-10-24] VITALS: Ht 188 cm; Wt 132.2 kg
[2022-10-24] MEDS ORDERED: LISI5 (11:49)
[2022-10-24] MEDS ORDERED: OMEGA-3 + D SO1 EACH (11:50)
[2022-10-24] MEDS ORDERED: SERT25 (11:50)
[2022-10-24] MEDS ORDERED: INSULANI (11:51)
== END 2022-10-24 14:45 | disposition home or self-care (01) ==
LOC: ORSCSDS 11:17
PROVIDERS: Internal Medicine Gastroenterology
PROC: 0DBE8ZX Excision of Large Intestine, Via Natural or Artificial Opening Endoscopic, Diagnostic (ICD-10-PCS; principal; 2022-10-24 13:00)
PROC: 0DB98ZX Excision of Duodenum, Via Natural or Artificial Opening Endoscopic, Diagnostic (ICD-10-PCS; principal; 2022-10-24 13:00)
PROC: 0DB78ZX Excision of Stomach, Pylorus, Via Natural or Artificial Opening Endoscopic, Diagnostic (ICD-10-PCS; principal; 2022-10-24 13:00)
PROC: 0DB58ZX Excision of Esophagus, Via Natural or Artificial Opening Endoscopic, Diagnostic (ICD-10-PCS; principal; 2022-10-24 13:00)
DX: R19.4 Change in bowel habit (principal); R10.12 Left upper quadrant pain; R13.10 Dysphagia, unspecified; K29.70 Gastritis, unspecified, without bleeding; K44.9 Diaphragmatic hernia without obstruction or gangrene; I10 Essential (primary) hypertension; E11.9 Type 2 diabetes mellitus without complications; K21.9 Gastro-esophageal reflux disease without esophagitis; G47.33 Obstructive sleep apnea (adult) (pediatric); K76.0 Fatty (change of) liver, not elsewhere classified; E66.9 Obesity, unspecified; Z68.37 Body mass index [BMI] 37.0-37.9, adult; Z86.73 Personal history of transient ischemic attack (TIA), and cerebral infarction without residual deficits; J45.909 Unspecified asthma, uncomplicated; Z79.899 Other long term (current) drug therapy; Z85.51 Personal history of malignant neoplasm of bladder; F17.210 Nicotine dependence, cigarettes, uncomplicated
CPT/HCPCS: 82947; 88305; 88342; J2250; J2704; J7120

== ENCOUNTER 2023-08-30 06:26 | Day surgery (SDC) | payer OTHER ==
[~2023-08-30] VITALS: Ht 188 cm; Wt 140.0 kg
[2023-08-30] VITALS (7 sets, daily range): BP systolic 114–142; BP diastolic 71–93
[~2023-08-30 06:26] MED LIST changes: +ATOR40TA PO; +Aspir 8181 MG PO; +INSULANI; +INSULANPEN SC; +LISI5; +METO50ER PO; +NOVOLIN N100 UNIT/2 SQ; +OMEGA-3 + D SO1 EACH; +SERT25
--- NOTE | 2023-08-30 08:52 | NUR ---
PT BACK TO RECOVERY FROM LAB. PT A&Ox4. REPEAT V/S. RADIAL SITE SOFT AND NON-TENDER PER PT. NO BLEEDING NOTED.
--- NOTE | 2023-08-30 09:09 | NUR ---
DREILING AT BEDSIDE SPEAKING W/ PT AND FAMILY ABOUT FINDINGS AND PLAN OF CARE. SCRIPT CALLED INTO [facility].
--- NOTE | 2023-08-30 09:19 | NUR ---
PT TAKEN TO RECEIVE ECHO
--- NOTE | 2023-08-30 09:46 | NUR ---
PT BACK TO RECOVERY FROM ECHO.
--- NOTE | 2023-08-30 09:51 | NUR ---
PT EATING BREAKFAST BROUGHT BY .
--- NOTE | 2023-08-30 10:07 | NUR ---
2 CC REMOVED FROM TR BAND. SITE SOFT AND NON-TENDER. NO BLEEDING NOTED.
--- NOTE | 2023-08-30 10:29 | NUR ---
2CC REMOVED FROM TR BAND. SITE SOFT AND NON-TENDER PER PT. NO BLEEDING NOTED.
--- NOTE | 2023-08-30 10:36 | NUR ---
TR BAND FULLY DEFLATED. SITE SOFT AND NON-TENDER PER PT. NO BLEEDING NOTED.
--- NOTE | 2023-08-30 11:32 | NUR ---
PT GIVEN DC INSTRUCTIONS AND VERBALIZED UNDERTSANDING. IV OUT. PT CHANGED. SITE SOFT AND NON-TENDER. NO BLEEDING NOTED. CLOTH DOT, SLING AND ARM BOARD APPLIED. PT OPTED TO WALK TO [facility] W/ FAMILY WHERE WILL DRIVE PT HOME.
== END 2023-08-30 11:30 | disposition home or self-care (01) ==
LOC: MHTC 06:26 → ORSCMMR 06:28 → MHTC 06:31
DX: R07.89 Other chest pain (principal); E11.9 Type 2 diabetes mellitus without complications; J44.9 Chronic obstructive pulmonary disease, unspecified; E78.5 Hyperlipidemia, unspecified; E66.01 Morbid (severe) obesity due to excess calories; Z68.39 Body mass index [BMI] 39.0-39.9, adult
CPT/HCPCS: 76937; 93458; C1769; C1887; C1894; J1644; J7030; J7050; Q9967

== ENCOUNTER 2025-02-15 13:05 | Inpatient (IN) | payer OTHER ==
[~2025-02-15] VITALS: Ht 188 cm; Wt 131.5 kg
[~2025-02-15 13:05] MED LIST changes: +ALBU90OI INH; +AMOCLA875 PO; +FUROSEMIDE40 MG PO; +HYDMOR2 PO; +INSULANI SC; +JARDIANCE25 MG PO; +METHYLPHENIDATE18 MG PO; +OMEGA-3 FISH O1 EA13 PO; +ROSUVASTATIN CAL5 MG PO; +VISBIOME 112.51 EACH PO
[2025-02-15 14:21] LABS: Alanine Aminotransfer (ALT/SGP 42.0 U/L (12-78); Albumin, Blood 4.3 g/dL (3.4-5.0); Albumin/Globulin Ratio 1.0 (0.8-1.8); Anion Gap 8.0 mmol/L (3-11); Aspartate Aminotrans (AST/SGOT 15.0 U/L (12-37); Bilirubin, Total 0.6 mg/dL (0.1-1.0); Blood Urea Nitrogen 25.0 mg/dL (8-24); CO2, Blood 24.0 mmol/L (21-32); Calcium, Blood 9.1 mg/dL (8.5-10.1); Chloride, Blood 106.0 mmol/L (98-108); Creatinine, Blood 1.32 mg/dL (0.60-1.20); Globulin, Blood 4.2 g/dL (2.2-4.0); Glucose, Blood 122.0 mg/dL (70-99); Potassium, Blood 3.8 mmol/L (3.5-5.5); Sodium, Blood 134.0 mmol/L (136-145); Total Protein, Blood 8.5 g/dL (6.4-8.2)
[2025-02-15 14:28] LABS: BASOPHILS ABSOLUTE AUTO 0.08 K/mm3 (0.00-0.23); BASOPHILS PERCENT AUTO 1 % (0-2); EOSINOPHILS ABSOLUTE AUTO 0.11 K/mm3 (0.00-0.68); EOSINOPHILS PERCENT AUTO 1 % (0-6); Hematocrit 47.1 % (37.0-53.0); Hemoglobin 16.0 g/dL (13.5-17.5); IMMATURE GRAN ABSOLUTE AUTO 0.04 K/mm3 (0.00-0.10); IMMATURE GRAN PERCENT AUTO 0 % (0-1); LYMPHOCYTES ABSOLUTE AUTO 1.31 K/mm3 (0.84-5.20); LYMPHOCYTES PERCENT AUTO 11 % (21-46); MONOCYTES ABSOLUTE AUTO 0.59 K/mm3 (0.16-1.47); MONOCYTES PERCENT AUTO 5 % (4-13); Mean Corpuscular HGB Conc 34.0 g/dL (31.5-36.5); Mean Corpuscular Volume 86 fL (80-100); NEUTROPHILS ABSOLUTE AUTO 10.31 K/mm3 (1.96-9.15); NEUTROPHILS PERCENT AUTO 83 % (41-73); NRBC ABSOLUTE 0.00 K/mm3 (0.00-0.02); NRBC Auto 0.0 /100 WBC (0.0-0.2); Platelet Count 286 K/mm3 (150-400); RDW Coefficient Variation 13.2 % (11.7-14.2); RDW Standard Deviation 40.9 fL (35.1-46.3)
[2025-02-15] MEDS ORDERED: Morphine Sulfate 4 MG/1 ML Injection IV ONE (14:50)
[2025-02-15] MEDS ORDERED: Metoclopramide HCl 5MG / ML 2ML Vial IV ONE (14:50)
[2025-02-15] MEDS ORDERED: DiphenhydrAMINE HCl 50 MG/ML 1ML Vial IV ONE (14:50)
[2025-02-15 15:02] LABS: Source, Urine Clean Catch
[2025-02-15 15:26] LABS: Bilirubin, Urine Neg (Neg); Glucose Qualitative, Urine 3+ (Neg); Ketones, Urine Neg (Neg); Leukocyte Esterase, Urine 3+ (Neg); Protein, Urine 3+ (Neg); Specific Gravity, Urine 1.015 (1.003-1.022); Urobilinogen, Urine NORM (Normal)
[2025-02-15 16:46] LABS: Color, Urine Pale Yellow (P-Yellow); White Blood Cells, Urine TNTC /hpf (0-5)
[2025-02-15] MEDS ORDERED: CefTRIAXone Sodium 2,000 MG in NS 100 ML IV ONE (18:00)
[2025-02-15 18:10] LABS: Bilirubin, Urine Neg (Neg); Glucose Qualitative, Urine 3+ (Neg); Ketones, Urine Neg (Neg); Leukocyte Esterase, Urine 2+ (Neg); Protein, Urine 3+ (Neg); Specific Gravity, Urine 1.010 (1.003-1.022); Urobilinogen, Urine NORM (Normal)
[2025-02-15] MEDS ORDERED: HYDROmorphone HCl/Pf 1MG SYR IV ONE (18:10)
[2025-02-15 18:11] LABS: Color, Urine Pale Yellow (P-Yellow); Source, Urine Nephrostomy
[2025-02-15] MEDS ORDERED: NS 1,000 ML IV SCH (18:50)
[2025-02-15] MEDS ORDERED: Morphine Sulfate 4 MG/1 ML Injection IV PRN (18:50)
[2025-02-15] MEDS ORDERED: Albuterol 2.5 MG/3 ML VIAL INH PRN (18:55)
[2025-02-15] MEDS ORDERED: NS 1,000 ML IV ONE (19:00)
[2025-02-15] MEDS ORDERED: Insulin Glargine-Yfgn 100 Unit/mL 3 ML SYR SC SCH (21:00)
[2025-02-15] MEDS ORDERED: Lactobacil 2-S.Thermo-Bifido 1 1 Cap PO SCH (21:00)
[2025-02-15 21:04] VITALS: BP 126/91
[2025-02-16 02:28] VITALS: BP 149/80
--- NOTE | 2025-02-16 05:16 | NUR ---
SHIFT SUMMARY PATIENT IS ALERT AND ORIENTED. PATIENT HAS HAD NO ACUTE EVENTS THIS SHIFT. VITAL SIGNS REVIEWED. PATIENT HAS REPORTED PAIN AND MEDICATED PER EMAR. PATIENT HAS REPORTED NAUSEA AND VOMITTING DUE TO PAIN MEDICATION. PATIENT HAS BEEN ON CONT PULSE OX FOR HX OF MARIELLE. PATIENT HAS BEEN NPO FOR POSSIBLE PROCEDURE TODAY. BED IN LOCKED AND LOWEST POSITION. CALL LIGHT IN PLACE.
[2025-02-16 06:35] LABS: Anion Gap 10.0 mmol/L (3-11); Blood Urea Nitrogen 25.0 mg/dL (8-24); CO2, Blood 21.0 mmol/L (21-32); Calcium, Blood 8.5 mg/dL (8.5-10.1); Chloride, Blood 108.0 mmol/L (98-108); Creatinine, Blood 1.53 mg/dL (0.60-1.20); Glucose, Blood 162.0 mg/dL (70-99); Potassium, Blood 4.3 mmol/L (3.5-5.5); Sodium, Blood 135.0 mmol/L (136-145)
[2025-02-16 06:43] LABS: Hematocrit 45.1 % (37.0-53.0); Hemoglobin 15.1 g/dL (13.5-17.5); Mean Corpuscular HGB Conc 33.5 g/dL (31.5-36.5); Mean Corpuscular Volume 90 fL (80-100); NRBC ABSOLUTE 0.00 K/mm3 (0.00-0.02); NRBC Auto 0.0 /100 WBC (0.0-0.2); Platelet Count 171 K/mm3 (150-400); RDW Coefficient Variation 13.6 % (11.7-14.2); RDW Standard Deviation 44.5 fL (35.1-46.3)
[2025-02-16] MEDS ORDERED: Metoclopramide HCl 5MG / ML 2ML Vial IV ONE ×2 (07:25→13:20)
[2025-02-16 07:43] VITALS: BP 117/84
[2025-02-16] MEDS ORDERED: Enoxaparin 40 MG/0.4 ML SYR SC SCH (09:00)
[2025-02-16] MEDS ORDERED: NS 1,000 ML IV ONE (10:52)
[2025-02-16] MEDS ORDERED: NS 250 ML IV ONE (10:52)
[2025-02-16] MEDS ORDERED: FentaNYL Citrate 50 MCG/ML 2 ML Injection ONE (11:03)
[2025-02-16] MEDS ORDERED: Midazolam HCl 1MG / ML 2ML Vial ONE (11:03)
[2025-02-16] MEDS ORDERED: Morphine Sulfate 4 MG/1 ML Injection ONE ×2 (11:26→11:51)
[2025-02-16 12:55] VITALS: BP 131/92
[2025-02-16] MEDS ORDERED: HYDROmorphone HCl/Pf 1MG SYR IV PRN (13:20)
[2025-02-16 15:56] VITALS: BP 122/74
--- NOTE | 2025-02-16 16:28 | NUR ---
SHIFT SUMMARY PT AOX4, COOPERATIVE, ABLE TO MAKE NEEDS KNOWN. PT IS SBA TO BATHROOM FOR VOIDING. WAS NPO DURING AM FOR PROCEDURE TO PLACE LEFT NEPH TUBE. UPON RETURNING, HE WAS ABLE TO EAT BUT STILL COMING OUT OF SEDATION, WAS NOT ABLE TO EAT MUCH. PT DID REPORT FEELING "VERY COLD". WENT INTO BATHROOM TO LEAVE OVER TOILET FOR ABOUT 30 MINS TO DRY HEAVE. TURNED ON HOT WATER IN SINK AND SHOWER TO "STEAM UP" THE BATHROOM TO GET WARM. THIS RN ASSISTED [facility]IH TRANSFER BACK TO BED TO GIVE MORE PAIN MED AND ANTINAUSEEA. SLEPT FOR APPROX 2HRS AND WOKE UP AOX4 AND HUNGRY, NO RECOLLECTION OF PREVIOUS 2 HORUS. TONNY RICHARD TOMORROW. BED IN LOWEST POSITION, CALL LIGHT WITHIN REACH.
[2025-02-16 19:57] VITALS: BP 131/92
[2025-02-16] MEDS ORDERED: CefTRIAXone Sodium 1,000 MG in NS 100 ML IV SCH (21:00)
[2025-02-16] MEDS ORDERED: Insulin Human Lispro 100 Units/ML 3ML Syringe SC SCH ×2 (21:00)
[2025-02-17 04:16] VITALS: BP 113/77
[2025-02-17 06:08] LABS: BASOPHILS ABSOLUTE AUTO 0.04 K/mm3 (0.00-0.23); BASOPHILS PERCENT AUTO 0 % (0-2); EOSINOPHILS ABSOLUTE AUTO 0.22 K/mm3 (0.00-0.68); EOSINOPHILS PERCENT AUTO 2 % (0-6); Hematocrit 37.3 % (37.0-53.0); Hemoglobin 12.5 g/dL (13.5-17.5); IMMATURE GRAN ABSOLUTE AUTO 0.06 K/mm3 (0.00-0.10); IMMATURE GRAN PERCENT AUTO 1 % (0-1); LYMPHOCYTES ABSOLUTE AUTO 1.05 K/mm3 (0.84-5.20); LYMPHOCYTES PERCENT AUTO 9 % (21-46); MONOCYTES ABSOLUTE AUTO 1.05 K/mm3 (0.16-1.47); MONOCYTES PERCENT AUTO 9 % (4-13); Mean Corpuscular HGB Conc 33.5 g/dL (31.5-36.5); Mean Corpuscular Volume 89 fL (80-100); NEUTROPHILS ABSOLUTE AUTO 9.11 K/mm3 (1.96-9.15); NEUTROPHILS PERCENT AUTO 79 % (41-73); NRBC ABSOLUTE 0.00 K/mm3 (0.00-0.02); NRBC Auto 0.0 /100 WBC (0.0-0.2); Platelet Count 181 K/mm3 (150-400); RDW Coefficient Variation 13.3 % (11.7-14.2); RDW Standard Deviation 43.3 fL (35.1-46.3)
[2025-02-17 06:54] LABS: Anion Gap 7.0 mmol/L (3-11); Blood Urea Nitrogen 23.0 mg/dL (8-24); CO2, Blood 26.0 mmol/L (21-32); Calcium, Blood 8.6 mg/dL (8.5-10.1); Chloride, Blood 100.0 mmol/L (98-108); Creatinine, Blood 1.48 mg/dL (0.60-1.20); Glucose, Blood 157.0 mg/dL (70-99); Potassium, Blood 3.4 mmol/L (3.5-5.5); Sodium, Blood 130.0 mmol/L (136-145)
[2025-02-17 07:22] VITALS: BP 141/91
--- NOTE | 2025-02-17 07:36 | NUR ---
SHIFT SUMMARY; PATIENT WAS AWAKE ALOT OF THE NIGHT, WALKING IN HALLWAY AND EMPTYING HIS UROSTOMY HIMSELF. THE LEFT NEPHROSTOMY TUBE DID NOT HAVE ANY OUTPUT. COPIOUS OF URINE FROM THE UROSTOMY AND MINIMUM FROM THE R NEPHROSTOMY. DID SPIKE A LOW GRADE FEVER. WAS GIVEN TYLENOL FOR.
[2025-02-17] MEDS ORDERED: Metoclopramide HCl 5MG / ML 2ML Vial IV PRN (12:30)
--- NOTE | 2025-02-17 12:32 | NUR ---
MD CALL MR HASKINS VERBALISED DESIRE TO BE DISCHARGED HOME EARLIER TODAY. AFTER SPEAKING WITH DR SNELL AND DISCHARGE ORDERS PLACED HE NOW HAS NAUSEA, FEELS LIKE HE IS GOING TO VOMIT AND HAS SHARP PAIN. HE WOULD LIKE TO STAY IN OVERNIGHT DR SNELL HAD ADVISED. DR SNELL WAS CALLED AND NOTIFIED AND HE VERBALISED AGREEMENT WITH MR HASKINS STAYING IN THE HOSPITAL TONIGHT. HE GAVE A TELEPHONE ORDER FOR REGLAN 5MG PO Q8HRS PRN AND HYDROCODONE/ACETAMINOPHEN 5/325 Q4HRS PRN. READ BACK DONE AND ORDERS ENTERED INTO [employer].
[2025-02-17] MEDS ORDERED: HYDROcodone 5-APAP 325 TAB PO PRN (12:35)
[2025-02-17 15:19] VITALS: BP 153/81
--- NOTE | 2025-02-17 17:48 | NUR ---
SHIFT SUMMARY MR HASKINS IS ORIENTATED X4. HE HAS HAD INTERMITTENT SHARP LEFT FLANK PAIN THROUGHOUT THE DAY. DILAUDID 0.5MG LASTS APPROX 3 HOURS. HE HAS DECLINED NORCO. HE HAD AN EPISODE OF NAUSEA AROUND MIDDAY THAT RESOLVED AFTER IV REGLAN. T MAX 100.2 THIS SHIFT, PT FELT COLD AND SWEATY. TEMPERATURE 99.7 POST TYLENOL. HE HAS HAD GOOD UOP FROM RIGHT NEPHROSTOMY TUBE AND FROM UROSTOMY BUT NO OUTPUT TODAY FROM LEFT NEPHROSTOMY. AT BEDSIDE. BED LOW, CALL LIGHT IN REACH. UP INDEPENDENTLY TO THE BATHROOM.
[2025-02-17 19:42] VITALS: BP 127/81
[2025-02-18 04:20] VITALS: BP 115/80
[2025-02-18 07:25] LABS: BASOPHILS ABSOLUTE AUTO 0.04 K/mm3 (0.00-0.23); BASOPHILS PERCENT AUTO 1 % (0-2); EOSINOPHILS ABSOLUTE AUTO 0.19 K/mm3 (0.00-0.68); EOSINOPHILS PERCENT AUTO 2 % (0-6); Hematocrit 34.7 % (37.0-53.0); Hemoglobin 11.9 g/dL (13.5-17.5); IMMATURE GRAN ABSOLUTE AUTO 0.02 K/mm3 (0.00-0.10); IMMATURE GRAN PERCENT AUTO 0 % (0-1); LYMPHOCYTES ABSOLUTE AUTO 1.38 K/mm3 (0.84-5.20); LYMPHOCYTES PERCENT AUTO 17 % (21-46); MONOCYTES ABSOLUTE AUTO 0.91 K/mm3 (0.16-1.47); MONOCYTES PERCENT AUTO 11 % (4-13); Mean Corpuscular HGB Conc 34.3 g/dL (31.5-36.5); Mean Corpuscular Volume 88 fL (80-100); NEUTROPHILS ABSOLUTE AUTO 5.80 K/mm3 (1.96-9.15); NEUTROPHILS PERCENT AUTO 70 % (41-73); NRBC ABSOLUTE 0.00 K/mm3 (0.00-0.02); NRBC Auto 0.0 /100 WBC (0.0-0.2); Platelet Count 175 K/mm3 (150-400); RDW Coefficient Variation 13.3 % (11.7-14.2); RDW Standard Deviation 43.5 fL (35.1-46.3)
[2025-02-18 07:41] LABS: Anion Gap 4.0 mmol/L (3-11); Blood Urea Nitrogen 18.0 mg/dL (8-24); CO2, Blood 28.0 mmol/L (21-32); Calcium, Blood 8.6 mg/dL (8.5-10.1); Chloride, Blood 103.0 mmol/L (98-108); Creatinine, Blood 1.35 mg/dL (0.60-1.20); Glucose, Blood 159.0 mg/dL (70-99); Potassium, Blood 3.3 mmol/L (3.5-5.5); Sodium, Blood 132.0 mmol/L (136-145)
[2025-02-18 07:46] VITALS: BP 129/81
[2025-02-18] MEDS ORDERED: LEVO750 PO (11:29)
--- NOTE | 2025-02-18 12:13 | NUR ---
DISCHARGE NOTE MR HASKINS REPORTS FEELING MORE COMFORTABLE TODAY, PAIN A LITTLE BETTER CONTROLLED, NO NAUSEA. HE WENT FOR A WALK WITH HIS . DR MI FLUSHED LEFT NEPHROSTOMY DRAIN AND THERE WAS SOME OUTPUT AFTERWARDS. PT TOOK A SHOWER. GIVEN WRITTEN AND VERBAL DISCHARGE INSTRUCTIONS. HE AND HIS VERBALISED NO FURTHER QUESTIONS PRIOR TO AMBULATING FROM THE UNIT AT 1215HRS.
== END 2025-02-18 12:27 | disposition home or self-care (01) | DRG 872 ==
LOC: ER 13:05 → MEDS 18:46 → ENPENDDIS 02-17 14:13 → MEDS 02-18 12:27
PROVIDERS: Internal Medicine; Nurse Practitioner Acute Care; Student in an Organized Health Care Education/Training Program; ADMIT Student in an Organized Health Care Education/Training Program
PROC: 3E03329 Introduction of Other Anti-infective into Peripheral Vein, Percutaneous Approach (ICD-10-PCS; principal; 2025-02-16)
PROC: 0T9430Z Drainage of Left Kidney Pelvis with Drainage Device, Percutaneous Approach (ICD-10-PCS; 2025-02-16)
DX: A41.9 Sepsis, unspecified organism (principal); N13.6 Pyonephrosis; E11.42 Type 2 diabetes mellitus with diabetic polyneuropathy; I25.10 Atherosclerotic heart disease of native coronary artery without angina pectoris; G47.33 Obstructive sleep apnea (adult) (pediatric); I25.2 Old myocardial infarction; E66.01 Morbid (severe) obesity due to excess calories; F17.210 Nicotine dependence, cigarettes, uncomplicated; Z86.73 Personal history of transient ischemic attack (TIA), and cerebral infarction without residual deficits; Z85.51 Personal history of malignant neoplasm of bladder; Z98.890 Other specified postprocedural states; Z90.49 Acquired absence of other specified parts of digestive tract; Z90.79 Acquired absence of other genital organ(s); Z68.37 Body mass index [BMI] 37.0-37.9, adult; E11.40 Type 2 diabetes mellitus with diabetic neuropathy, unspecified; E11.51 Type 2 diabetes mellitus with diabetic peripheral angiopathy without gangrene; Z93.6 Other artificial openings of urinary tract status; Z79.84 Long term (current) use of oral hypoglycemic drugs; Z79.899 Other long term (current) drug therapy; Z88.5 Allergy status to narcotic agent; Z88.1 Allergy status to other antibiotic agents; Z88.8 Allergy status to other drugs, medicaments and biological substances; Z88.6 Allergy status to analgesic agent; Z79.4 Long term (current) use of insulin; Z90.6 Acquired absence of other parts of urinary tract
CPT/HCPCS: 36415; 74177; 76937; 80048; 80053; 81001; 82947; 83605; 83690; 85025; 85027; 87040; 87077; 87086; 87186; 93005; 93010; 96365-59; 96375; 96376; 99152; 99153; 99285-25; A9270; C1729; C1769; G0378; J0696; J1171; J1200; J1650; J1815; J2250; J2270; J2765; J3010; J7030; J7050; Q9967

== ENCOUNTER → 2025-05-18 | Outpatient (CLI) | payer OTHER ==
[~2025-05-18] MED LIST changes: +LEVO750 PO
== END ==
LOC: LAB SHORT 16:39 → LAB 16:39
DX: N39.0 Urinary tract infection, site not specified (principal)
CPT/HCPCS: 87086